=== PATIENT | male | born 1965 | race Caucasian/White ===

== ENCOUNTER 2017-04-27 06:09 | Emergency (ER) | payer OTHER ==
[2017-04-27] MEDS ORDERED: BACIGUENT PACKET TP ONE (06:20)
[2017-04-27] MEDS ORDERED: Rocephin 1000 MG INJ IM ONE (06:21)
[2017-04-27] MEDS ORDERED: XYLOCAINE 1%/Epi 1:100000 MDV 20 ML IJ ONE (06:22)
[2017-04-27] MEDS ORDERED: XYLOCAINE 1% HCL 20 ML MDV IJ ONE (06:23)
[2017-04-27] MEDS ORDERED: XYLOCAINE 1% HCL 20 ML MDV ONE ×2 (06:23→06:39)
[2017-04-27] MEDS ORDERED: BACIGUENT PACKET ONE (06:36)
[2017-04-27] MEDS ORDERED: Rocephin 1000 MG INJ ONE (06:39)
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
[2017-04-27 07:19] VITALS: BP 143/96; PULSE 72; O2SAT 98
== END 2017-04-27 07:16 | disposition home or self-care (01) ==
LOC: ED 06:09
PROC: 0HQ0XZZ Repair Scalp Skin, External Approach (ICD-10-PCS; principal; 2017-04-27)
DX: S01.01XA Laceration without foreign body of scalp, initial encounter (principal); W45.8XXA Other foreign body or object entering through skin, initial encounter; Y93.89 Activity, other specified; Y92.69 Other specified industrial and construction area as the place of occurrence of the external cause; E78.00 Pure hypercholesterolemia, unspecified; I10 Essential (primary) hypertension; Z79.899 Other long term (current) drug therapy
CPT/HCPCS: 12002; 99284; J0696; A9270-GY